=== PATIENT | female | born 1965 | race Caucasian/White ===

== ENCOUNTER 2021-02-05 02:17 | Emergency (ER) | payer BC ==
[2021-02-05] MEDS ORDERED: Morphine 4 MG/ML VIAL ONE (02:30)
[2021-02-05] MEDS ORDERED: Morphine 2 MG/ML VIAL ONE (02:31)
[2021-02-05] MEDS ORDERED: diphenhydrAMINE 50 MG/ML VIAL ONE (02:31)
[2021-02-05 03:07] LABS: #Basophils 0.1 thou/uL (0.0-0.2); #Eosinphils 0.1 thou/uL (0.0-0.7); #Lymphocytes 3.1 thou/uL (1.20-3.40); #Monocytes 0.6 thou/uL (0.11-0.59); #Neutrophils 6.9 thou/uL (1.40-6.50); %Basophils 1.3 % (0.0-1.0); %Eosinophils 0.9 % (0.0-10.0); %Lymphocytes 28.6 % (21.0-51.0); %Monocytes 5.4 % (0.0-10.0); %Neutrophils 63.8 % (42.0-75.0); Hemoglobin 13.8 g/dL (12.0-16.0); Mean Corpuscular HGB CONC 32.3 g/dL (32.0-36.0); Mean Corpuscular Hemoglobin 29.6 pg (27.0-31.0); Mean Corpuscular Volume 91.5 fL (78.0-98.0); Platelet Count 288 thou/uL (130-400); RBC Distribution Width 11.4 % (11.5-14.5); Red Blood Cell (RBC) Count 4.67 mill/uL (4.20-5.40); White Blood Cell (WBC) Count 10.8 thou/uL (4.8-10.8)
[2021-02-05] MEDS ORDERED: Ondansetron PF 4 MG/2 ML Vial ONE (03:23)
[2021-02-05 03:29] LABS: ALT (SGPT) 26 U/L (8-55); AST (SGOT) 18 U/L (5-34); Albumin 4.1 g/dL (3.5-5.0); Alkaline Phosphatase 101 U/L (40-110); Anion Gap 16 mmol/L (10-20); BUN (Urea Nitrogen) 15 mg/dL (9.8-20.1); Bilirubin, Total 0.4 mg/dL (0.2-1.2); Calc. Creatinine Clearance 0 mL/min (70-130); Carbon Dioxide 24 mmol/L (22-29); Chloride 104 mmol/L (98-107); Glucose 123 mg/dL (70-105); Lipase 22 U/L (8-78); Potassium 3.8 mmol/L (3.5-5.1); Protein, Total 7.1 g/dL (6.0-8.3); Sodium 140 mmol/L (136-145)
[2021-02-05] MEDS ORDERED: Ketorolac Tromethamine 30 MG/ML VIAL ONE (03:30)
[2021-02-05] MEDS ORDERED: Mag-Al Plus 1200 MG/1200 MG/120 MG/30 ML UDCUP ONE (03:58)
[2021-02-05] MEDS ORDERED: Lidocaine Viscous Sol 2% 15 ml UD Cup ONE (03:58)
[2021-02-05 05:43] LABS: Troponin I Less than 0.010 ng/mL (< 0.028)
[2021-02-05] MEDS ORDERED: Sodium Chloride 0.9% 100 ML BAG ONE (07:11)
[2021-02-05] MEDS ORDERED: Iopamidol 370 76% 125 ML VIAL FS ONE (10:56)
== END 2021-02-05 06:21 | disposition home or self-care (01) ==
LOC: MADERS 02:17
DX: K80.20 Calculus of gallbladder without cholecystitis without obstruction (principal); R07.2 Precordial pain; R06.02 Shortness of breath; G43.909 Migraine, unspecified, not intractable, without status migrainosus; Z79.899 Other long term (current) drug therapy
CPT/HCPCS: 71275; 74174; 80053; 83690; 84484; 85025; 93005; 94760; 96374; 96375; J1200; J1885; J2270; J2405; J3490; Q9967